=== PATIENT | male | born 1950 | race Caucasian/White ===

== ENCOUNTER → 2019-12-01 | Outpatient (CLI) | payer OTHER, MEDICARE | END | disposition home or self-care (01) | LOC: ROC 11-24 14:06 | PROVIDERS: ATTEND Radiology Radiation Oncology | DX: C34.12 Malignant neoplasm of upper lobe, left bronchus or lung (principal); C61 Malignant neoplasm of prostate | CPT/HCPCS: 99215; G0463 ==

== ENCOUNTER 2019-12-19 06:22 | Day surgery (SDC) | payer MEDICARE, OTHER ==
[~2019-12-19] VITALS: Ht 175.3 cm; Wt 98.9 kg
[2019-12-19 06:41] VITALS: BP 118/65
[2019-12-19] MEDS ORDERED: SODIUM CHLORIDE 0.9% 1,000 ML IV SCH (07:00)
[2019-12-19 07:40] LABS: INTERNATIONAL NORMALIZED RATIO 1.1 (0.93-1.1); PROTHROMBIN TIME 11.7 Seconds (9.6-11.5)
[2019-12-19] MEDS ORDERED: MIDAZOLAM 1 MG/ML, 5ML ONE (08:10)
[2019-12-19] MEDS ORDERED: FENTANYL PF 100 MCG/2ML ONE (08:10)
[2019-12-19] MEDS ORDERED: FLUMAZENIL 0.1 MG/1 ML, 5ML ONE (08:11)
[2019-12-19] MEDS ORDERED: NALOXONE 1 MG/ML, 2ML ONE (08:11)
[2019-12-19] MEDS ORDERED: LIDOCAINE 1%, 10ML ONE (08:20)
== END 2019-12-19 12:15 | disposition home or self-care (01) ==
LOC: OUT 06:22
PROVIDERS: ATTEND Radiology Radiation Oncology
DX: C34.12 Malignant neoplasm of upper lobe, left bronchus or lung (principal); Z79.01 Long term (current) use of anticoagulants
CPT/HCPCS: 32553; 36415; 71045; 77014; 85610; 99156; 99157; A4648; J3010; J2250; J2310

== ENCOUNTER 2020-01-17 07:25 | Outpatient (CLI) | payer MEDICARE, OTHER ==
[2020-01-17] MEDS ORDERED: FENTANYL PF 100 MCG/2ML IVPush ONE (10:00)
[2020-01-17] MEDS ORDERED: MIDAZOLAM 1 MG/ML, 5ML IVPush ONE (10:00)
[2020-01-17] MEDS ORDERED: LIDOCAINE/PF 1%, 30ML IV ONE (10:00)
== END 2020-01-17 23:59 | disposition home or self-care (01) ==
LOC: ROC 07:25
PROVIDERS: ATTEND Radiology Radiation Oncology
DX: C61 Malignant neoplasm of prostate (principal); C34.12 Malignant neoplasm of upper lobe, left bronchus or lung; I10 Essential (primary) hypertension; E11.9 Type 2 diabetes mellitus without complications; E78.5 Hyperlipidemia, unspecified; J44.9 Chronic obstructive pulmonary disease, unspecified; F32.9 Major depressive disorder, single episode, unspecified; D68.51 Activated protein C resistance; F17.210 Nicotine dependence, cigarettes, uncomplicated; Z79.01 Long term (current) use of anticoagulants; Z79.84 Long term (current) use of oral hypoglycemic drugs; Z79.891 Long term (current) use of opiate analgesic; Z79.899 Other long term (current) drug therapy; Z86.718 Personal history of other venous thrombosis and embolism; Z88.8 Allergy status to other drugs, medicaments and biological substances; Z98.890 Other specified postprocedural states; Z82.49 Family history of ischemic heart disease and other diseases of the circulatory system; Z80.1 Family history of malignant neoplasm of trachea, bronchus and lung
CPT/HCPCS: 55876; 76942; 77332; A4648; J2250; J3010; 99156

== ENCOUNTER → 2020-01-24 | Outpatient (CLI) | payer MEDICARE, OTHER | END | disposition home or self-care (01) | LOC: CFH 12:11 | PROVIDERS: ATTEND Radiology Radiation Oncology | DX: C61 Malignant neoplasm of prostate (principal); E11.9 Type 2 diabetes mellitus without complications; I10 Essential (primary) hypertension | CPT/HCPCS: 72195 ==

== ENCOUNTER 2020-04-27 07:53 | Outpatient (CLI) | payer MEDICARE, OTHER | END 2020-04-27 23:59 | disposition home or self-care (01) | LOC: ROC 07:53 | PROVIDERS: ATTEND Radiology Radiation Oncology | DX: C61 Malignant neoplasm of prostate (principal) | CPT/HCPCS: G0463 ==

== ENCOUNTER 2020-10-29 08:17 | Outpatient (CLI) | payer MEDICARE, OTHER | END 2020-10-29 23:59 | disposition home or self-care (01) | LOC: ROC 08:17 | PROVIDERS: ATTEND Radiology Radiation Oncology | DX: Z08 Encounter for follow-up examination after completed treatment for malignant neoplasm (principal); Z85.46 Personal history of malignant neoplasm of prostate | CPT/HCPCS: G0463 ==